=== PATIENT | male | born 1980 | race Hispanic/Latino ===

== ENCOUNTER 2019-12-08 16:24 | Emergency (ER) | payer SELFPAY ==
[~2019-12-08 16:24] MED LIST: Iopamidol-370 76% 500 ML 1 ML ONE
[2019-12-08] MEDS ORDERED: Ondansetron PF 4 MG/2 ML Vial ONE (17:45)
[2019-12-08] MEDS ORDERED: Fentanyl 100 MCG/2 ML VIAL ONE (17:45)
--- NOTE | 2019-12-08 18:42 | CT ---
CT CHEST WITH IV CONTRAST CT ABDOMEN WITH IV CONTRAST CT PELVIS WITH IV CONTRAST CORONAL AND SAGITTAL REFORMATIONS OF THE THORACIC-LUMBAR SPINE: HISTORY: Fell off a 6 foot ladder. Back pain, chest pain, abdominal pain FINDINGS: No mediastinal hematoma or intimal flap is seen in the aorta to suggest transection. No pleural or pe ricardial effusions are identified. No pneumothoraces or pulmonary contusions are seen. The liver, spleen, pancreas, adrenal glands and kidneys appear intact. Gallbladder and urinary bladde r also appear intact. No free air or free fluid is seen in the abdomen or pelvis. No acute fracture or subluxation is seen in the thoracic lumbar spine. There are postop changes of po sterior spinal fusion with intact metallic hardware at L5-S1 level. No other acute osseous abnormalities are seen. IMPRESSION: No CT evidence of acute intrathoracic or solid organ injury.
== END 2019-12-08 19:33 | disposition home or self-care (01) ==
LOC: ERS 16:24
DX: S30.0XXA Contusion of lower back and pelvis, initial encounter (principal); F17.210 Nicotine dependence, cigarettes, uncomplicated; W17.89XA Other fall from one level to another, initial encounter; Y92.69 Other specified industrial and construction area as the place of occurrence of the external cause; Y99.0 Civilian activity done for income or pay
CPT/HCPCS: 71260; 74177; 96374; 96375; J2405; J3010; Q9967